=== PATIENT | female | born 1945 | race Caucasian/White ===

== ENCOUNTER 2018-08-03 14:39 | Inpatient (IN) | payer OTHER ==
[~2018-08-03] VITALS: Ht 170.2 cm; Wt 89.4 kg
--- NOTE | 2018-08-03 14:59 | NUR ---
PATIENT WHEELCHAIR ASSISTED TO BED 8.
[2018-08-03 15:00] VITALS: BP 162/63
--- NOTE | 2018-08-03 15:17 | NUR ---
PATIENT PRESENTS TO ED WITH THE CHIEF C/O RIGHT FOOT ABSCESS, PAIN. ACCORDING TO PT, WOUND PRESENTED SINCE A YEAR AGO. PT NOTED WITH DRAINING OPEN WOUND ON RIGHT FOOT. AMPUTED PART OF RIGHT GREAT TOE. WOUND SITE NOTED WITH BLANCHEABLE REDNESS AND SWOLLEN. PT HAS GOOD PULSATION ON RIGHT FEET. PT HAS NEUROPATHY. DENIES N/V,D AT THIS TIME. SKIN IS PINK/WARM/DRY; AAOX4. LUNGS CLEAR BL; HR EVEN AND REGULAR; PT DENIES ANY FEVER, CP, SOB, OR COUGH AT THIS TIME; PATIENT STATES PAIN OF 0/10 AT THIS TIME. VERICOSE VEINS NOTED ON BLE. PITTING EDEMA NOTED ON BLE. VSS; PATIENT POSITIONED FOR COMFORT; HOB ELEVATED; BEDRAILS UP X2; BED DOWN. ER MD MADE AWARE OF PT STATUS.
[2018-08-03] MEDS ORDERED: NACL 0.9% 1,000 ML IV SCH (15:25)
[2018-08-03] MEDS ORDERED: PIPERACILLIN/TAZOBACTAM 3.375 GM in DEXT 5% MINI-BAG PLUS 50 ML IV ONE (15:25)
[2018-08-03] MEDS ORDERED: traMADol 50 MG TAB PO ONE (15:45)
[2018-08-03 16:03] LABS: BASOPHILS % (AUTO) 0.2 % (0.0-2.0); EOSINOPHILS # (AUTO) 0.1 K/uL (0-0.4); EOSINOPHILS % (AUTO) 0.7 % (0.0-4.0); HEMATOCRIT 29.9 % (36-48); HEMOGLOBIN 9.6 g/dL (12.0-16.0); LYMPHOCYTES # (AUTO) 0.8 K/uL (2.5-16.5); LYMPHOCYTES % (AUTO) 6.1 % (20.5-51.1); MEAN CORPUSCULAR HEMOGLOBIN 31 pg (27-31); MEAN CORPUSCULAR HGB CONC 32 g/dL (33-37); MEAN CORPUSCULAR VOLUME 95.2 fL (80-94); MONOCYTES # (AUTO) 0.7 K/uL (0.8-1.0); MONOCYTES % (AUTO) 4.9 % (1.7-9.3); NEUTROPHILS # (AUTO) 11.6 K/uL (1.8-7.7); NEUTROPHILS % (AUTO) 88.1 % (42.2-75.2); PLATELET COUNT (AUTO) 475 K/uL (140-450); RED BLOOD CELL COUNT(AUTO) 3.14 MIL/uL (4.20-5.40); RED CELL DISTRIBUTION WIDTH 15.3 % (11.6-13.7); WHITE BLOOD COUNT (AUTO) 13.2 K/uL (4.8-10.8)
[2018-08-03] MEDS ORDERED: PIPERACILLIN/TAZOBACTAM 3.375 GM VIAL IV ONE (16:26)
[2018-08-03 16:31] LABS: ANION GAP 15.5 (8-16); CARBON DIOXIDE 26.9 mmol/L (21-32); CHLORIDE 97 mmol/L (98-107); CREATININE 1.7 mg/dL (0.6-1.3); GLUCOSE 98 mg/dL (74-106); POTASSIUM 3.4 mmol/L (3.5-5.1); SODIUM SERUM 136 mmol/L (136-145); UREA NITROGEN, BLOOD 27 mg/dL (7-18)
[2018-08-03 16:36] LABS: ALBUMIN 3.1 g/dL (3.4-5.0); ASPARTATE AMINOTRANSFERASE 52 U/L (15-37); TOTAL BILIRUBIN 0.4 mg/dL (0.0-1.0)
--- NOTE | 2018-08-03 16:45 | NUR ---
x-ray at the bedside.
[2018-08-03 16:50] LABS: PROTHROMBIN TIME 10.6 secs (10.8-13.4)
[2018-08-03 16:52] LABS: URIC ACID 6.8 mg/dL (2.6-7.2)
[2018-08-03 16:53] LABS: ACETONE, SERUM NEGATIVE (NEGATIVE)
[2018-08-03 17:25] LABS: APPEARANCE,URINE CLEAR (CLEAR); BILIRUBIN,URINE NEGATIVE (NEGATIVE); BLOOD, URINE NEGATIVE (NEGATIVE); COLOR,URINE YELLOW (YELLOW); LEUKOCYTE ESTERASE ,URINE NEGATIVE (NEGATIVE); NITRITE, URINE NEGATIVE (NEGATIVE); UGLUCOSE NEGATIVE (NEGATIVE)
--- NOTE | 2018-08-03 19:30 | NUR ---
ASSUMED CARE OF PT AT THIS TIME FROM HAILE JONES
--- NOTE | 2018-08-03 21:15 | NUR ---
PT RESTING AT THIS TIME. VSS. NO COMPLAINTS AT THIS TIME.
--- NOTE | 2018-08-03 22:14 | NUR ---
PT ARRIVED FROM ER IN [facility]. RECEIVED REPORT FROM STRUCTURAL METAL FABRICATOR APPRENTICE FOR CONTINUITY OF CARE. PT IS A/OX4, ON ROOM AIR. PT IS ABLE TO MAKE NEEDS KNOWN, ABLE TO FOLLOW COMMANDS. PT AMBULATES WITH CANE. PT HAS RIGHT FOOT ULCER OOZING PURULENT SECRETIONS, ALSO HAS BRUISES ON RIGHT FOREARM. PT HAS A 20G IV TO LEFT AC, ASYMPTOMATIC AND INTACT. DISCUSSED PLAN OF CARE WITH PT, PT VERBALIZED UNDERSTANDING. OBTAINED MRSA SWAB. VITAL SIGNS WITHIN NORMAL LIMITS. PT STABLE, DENIES PAIN, NO SIGNS OF DISTRESS NOTED AT THIS TIME. PT POSITIONED FOR COMFORT. BED IN LOWEST POSITION, BED ALARM ON. CALL LIGHT WITHIN REACH, WILL CONTINUE TO MONITOR.
[2018-08-03] MEDS ORDERED: DEXT 5% /NACL 0.9% 1,000 ML IV SCH (22:19)
[2018-08-03] MEDS ORDERED: DOCUSATE SODIUM 100 MG GELCAP PO PRN (22:20)
[2018-08-03] MEDS ORDERED: ACETAMINOPHEN 325 MG TAB PO PRN ×2 (22:20→23:05)
[2018-08-03] MEDS ORDERED: ONDANSETRON 4 MG/2 ML VIAL IM/IVP PRN (22:20)
[2018-08-03] MEDS ORDERED: HYDROcodone/APAP 7.5/325 MG 1 TAB PO PRN (22:20)
--- NOTE | 2018-08-03 22:39 | NUR ---
Patient will be admitted to care of DR BRAXTON. Admited to TELE. Will go to room 110-B. Belongings list completed. Report to HAILE WEBB.
[2018-08-03] MEDS ORDERED: CETI-24 PO (22:49)
[2018-08-03] MEDS ORDERED: BACL10TA4 PO (22:49)
[2018-08-03] MEDS ORDERED: FURO-572 PO (22:49)
[2018-08-03] MEDS ORDERED: LEVO0.155 PO (22:49)
[2018-08-03] MEDS ORDERED: OMEP20TC10 PO (22:49)
[2018-08-03] MEDS ORDERED: PRED5TAB7 PO (22:49)
[2018-08-03] MEDS ORDERED: CALC0.5S6 PO (22:49)
[2018-08-03] MEDS ORDERED: TOFA5TAB PO (22:49)
[2018-08-03] MEDS ORDERED: AMLO5TAB PO (22:49)
[2018-08-03] MEDS ORDERED: FEBU80TA PO (22:49)
[2018-08-03] MEDS ORDERED: POTA8TER12 PO (22:49)
[2018-08-03] MEDS ORDERED: ONDANSETRON 4 MG/2 ML VIAL IVP PRN (23:05)
[2018-08-03] MEDS ORDERED: HYDROcodone/APAP 5/325 MG 1 TAB TAB PO PRN ×2 (23:05)
[2018-08-03 23:14] LABS: CHOL/HDL RATIO 3.5 (1-4.5); FREE T4 (FREE THYROXINE) 1.54 ng/dL (0.76-1.46); PHOSPHORUS 2.5 mg/dL (2.5-4.9); THYROID STIMULATING HORMONE 0.04 uIU/mL (0.34-3.74)
[2018-08-03] MEDS ORDERED: cefTRIAXone 1,000 MG VIAL ONE (23:52)
[2018-08-04] VITALS: BP 160/71
--- NOTE | 2018-08-04 | NUR ---
VITAL SIGNS WITHIN NORMAL LIMITS. DENIES PAIN, NO SIGNS OF DISTRESS NOTED AT THIS TIME. PT POSITIONED FOR COMFORT. BED IN LOWEST POSITION, BED ALARM ON. CALL LIGHT WITHIN REACH, WILL CONTINUE TO MONITOR.
--- NOTE | 2018-08-04 01:15 | NUR ---
SPOKE TO DR BRANDT REGARDING PT MAGNESIUM LEVEL AT 1.0, DR BRANDT SAID "OK." ASKED HIM IF HE WANTED TO REPLETE IT OR LEAVE IT IS, HE SAID "THAT'S FINE THANKS."
--- NOTE | 2018-08-04 02:23 | NUR ---
GAVE PT SANDWICH BECAUSE PT WAS HUNGRY.
[2018-08-04] MEDS ORDERED: LEVOTHYROXINE 0.075 MG TAB PO SCH (06:30)
--- NOTE | 2018-08-04 07:37 | NUR ---
ENDORSED PT TO DAY SHIFT HAILE CASTRO FOR CONTINUITY OF CARE. PT IN STABLE CONDITION. Addendum: 08/04/18 at 0739 by Chantelle Simmons RN ENDORSED TO NHAN HOWE.
[2018-08-04 08:00] VITALS: BP 170/65
[2018-08-04 08:00] LABS: BASOPHILS % (AUTO) 0.3 % (0.0-2.0); EOSINOPHILS # (AUTO) 0.2 K/uL (0-0.4); EOSINOPHILS % (AUTO) 1.6 % (0.0-4.0); HEMATOCRIT 26.2 % (36-48); HEMOGLOBIN 8.5 g/dL (12.0-16.0); LYMPHOCYTES # (AUTO) 1.9 K/uL (2.5-16.5); LYMPHOCYTES % (AUTO) 18.5 % (20.5-51.1); MEAN CORPUSCULAR HEMOGLOBIN 31 pg (27-31); MEAN CORPUSCULAR HGB CONC 33 g/dL (33-37); MEAN CORPUSCULAR VOLUME 95.9 fL (80-94); MONOCYTES # (AUTO) 0.7 K/uL (0.8-1.0); MONOCYTES % (AUTO) 7.2 % (1.7-9.3); NEUTROPHILS # (AUTO) 7.4 K/uL (1.8-7.7); NEUTROPHILS % (AUTO) 72.4 % (42.2-75.2); PLATELET COUNT (AUTO) 415 K/uL (140-450); RED BLOOD CELL COUNT(AUTO) 2.73 MIL/uL (4.20-5.40); RED CELL DISTRIBUTION WIDTH 14.9 % (11.6-13.7); WHITE BLOOD COUNT (AUTO) 10.2 K/uL (4.8-10.8)
[2018-08-04] MEDS: LORATADINE 10 MG TAB PO SCH (08:42)
[2018-08-04] MEDS: PANTOPRAZOLE 40 MG TABEC PO SCH (08:42)
[2018-08-04] MEDS: amLODIPine 5 MG TAB PO SCH (08:44)
[2018-08-04] MEDS: predniSONE 5 MG TAB PO SCH (08:45)
[2018-08-04] MEDS: POTASSIUM CHLORIDE 8 MEQ TABER PO SCH (08:45)
--- NOTE | 2018-08-04 08:54 | NUR ---
PATIENT HAS BEEN SCREENED AND CATEGORIZED HIGH NUTRITION RISK. PATIENT WILL BE SEEN WITHIN 1-2 DAYS OF ADMISSION. 08/04/18-08/05/[address]
[2018-08-04] MEDS ORDERED: [UNRECOGNIZED DRUG - REMARK] PO SCH (09:00)
[2018-08-04] MEDS ORDERED: NON-FORMULARY ITEM (Omeprazole 40 MG) PO SCH (09:00)
--- NOTE | 2018-08-04 09:03 | NUR ---
ADMINISTERED PRESCRIBED MEDS. PATIENT TOLERATED WELL. WILL CONTINUE TO MONITOR.
[2018-08-04 09:22] LABS: ALBUMIN 2.6 g/dL (3.4-5.0); ANION GAP 11.1 (8-16); ASPARTATE AMINOTRANSFERASE 54 U/L (15-37); CARBON DIOXIDE 28.4 mmol/L (21-32); CHLORIDE 101 mmol/L (98-107); CREATININE 1.6 mg/dL (0.6-1.3); GLUCOSE 91 mg/dL (74-106); POTASSIUM 3.5 mmol/L (3.5-5.1); SODIUM SERUM 137 mmol/L (136-145); TOTAL BILIRUBIN 0.3 mg/dL (0.0-1.0); UREA NITROGEN, BLOOD 29 mg/dL (7-18)
--- NOTE | 2018-08-04 10:40 | NUR ---
PATIENT SPOKE WITH DR. PACHECO REGARDING HOME MEDICATIONS AND OR SCHEDULED FOR TOMORROW. PATIENT AND DOCTOR ARE ON THE SAME PAGE WITH MEDS.
--- NOTE | 2018-08-04 12:26 | NUR ---
PATIENT APPLYING MAKEUP. NO DISTRESS NOTED. WILL CONTINUE TO MONITOR.
[2018-08-04] MEDS: BACLOFEN 10 MG TAB PO SCH ×2 (12:48→18:06)
--- NOTE | 2018-08-04 12:48 | NUR ---
ADMINISTERED SCHEDULED MEDS. PATIENT EATING LUNCH. PATIENT TOLERATED WELL. WILL CONTINUE TO MONITOR.
--- NOTE | 2018-08-04 13:24 | NUR ---
SPOKE TO CHARGE NURSE AND PT. PT. IS AAX4. PER PT. SHE WAS SEEN AND TREATMENT WAS DONE BY INTERNAL RECRUITER THIS MORNING,AND PLAN FOR SURGERY TOMORROW.PT. WILL CONTINUE TO FOLLOW UP WITH PODIATRY SERVICE. NO NEED FOR WOUND CONSULT/RECOMMENDATIONS AT THIS TIME. CENTRAL SUPPLY WAS NOTIFIED WOUND VAC WAS ORDER PER DR. ALL OLEARY.
--- NOTE | 2018-08-04 13:55 | NUR ---
SON AT BEDSIDE. NO SIGNS OF RESPIRATORY DISTRESS, ON RA. WILL CONTINUE TO MONITOR.
--- NOTE | 2018-08-04 14:08 | NUR ---
08/04/18 RD INITIAL ASSESSMENT COMPLETED PLEASE REFER TO NUTRITION ASSESSMENT UNDER CARE ACTIVITY FOR ESTIMATED NUTRITIONAL NEEDS. 1. CONTINUE CARDIAC DIET TOLERATED 2. RECOMMEND JAYDEN BID TO AID IN WOUND HEALING 3. RD TO FOLLOW-UP 3-5 DAYS, MODERATE RISK KELSEA DESHPANDE, RD
[2018-08-04 16:00] VITALS: BP 181/84
--- NOTE | 2018-08-04 16:03 | NUR ---
PATIENT SPEAKING TO ON PHONE. NO DISTRESS NOTED, ON RA. WILL CONTINUE TO MONITOR.
[2018-08-04] MEDS: FUROSEMIDE 20 MG TAB PO SCH (18:06)
--- NOTE | 2018-08-04 18:08 | NUR ---
ADMINISTERED SCHEDULED MEDS. PATIENT TOLERATED WELL. WILL CONTINUE TO MONITOR.
--- NOTE | 2018-08-04 19:50 | NUR ---
HOUSE CALLS NURSE PRACTITIONER CALLED PRELIMINARY RESULT OF RIGHT FOOT WOUND CULTURE POSITIVE FOR MRSA. INFORMED CHARGE NURSE KENDRA.
--- NOTE | 2018-08-04 19:57 | NUR ---
GAVE REPORT TO WATER HAULER NURSE. PATIENT ENDORSED IN STABLE CONDITION.
--- NOTE | 2018-08-04 19:58 | NUR ---
RECD. RESTING IN BED, AWAKE, A/OX4, OBESE. RESPIRATION EVEN AND UNLABORED. IV OF NS AT TKO INFUSING, LEFT AC G20. RIGHT FOOT WOUND COVERED WITH DRESSING DRY AND INTACT. PLAN OF CARE FOR THE SHIFT DISCUSSED. VERBALIZED UNDERSTANDING. DENIES PAIN 0/10.
--- NOTE | 2018-08-04 20:15 | NUR ---
TRANSFER PATIENT TO ROOM 105B. CONTACT ISOLATION.
--- NOTE | 2018-08-04 21:00 | NUR ---
Patient's Plan of Care was discussed and reviewed with STOCK PREPARER: TALIA FIGUEROA
--- NOTE | 2018-08-04 21:05 | NUR ---
IV ACCESS ON THE LT AC INFILTRATED. A NEW IV SITE STARTED ON THE LT WRIST G#22. CLEAR AND PATENT
[2018-08-04] MEDS ORDERED: VANCOMYCIN PER PHARMACY MC ONE (21:25)
[2018-08-04] MEDS ORDERED: hydrALAZINE 20 MG/ML VIAL IVP PRN ×2 (21:25→23:35)
[2018-08-04 21:40] VITALS: BP 211/73
[2018-08-04] MEDS ORDERED: VANCOMYCIN PER PHARMACY MC SCH (21:45)
[2018-08-04] MEDS: hydrALAZINE 20 MG/ML VIAL IVP PRN (21:46)
--- NOTE | 2018-08-04 21:46 | NUR ---
PT BLOOD PRESSURE ELEVATED LATEST 211/73, HR-86 , PT SAID SHE IS NOT IN PAIN. PAGED DR. PANIAGUA AND DR ARGUETA STNA . CALL BACK WITH ORDER. HYDRALAZINE 10 MG IVP. GIVEN. WILL RECHECK BP AND CONTINUE TO MONITOR .
[2018-08-04] MEDS ORDERED: VANCOMYCIN 1GM/DEXT 5% PREMIX 200 ML IV ONE (22:00)
[2018-08-04] MEDS ORDERED: VANCOMYCIN 1,000 MG VIAL ONE (22:21)
--- NOTE | 2018-08-04 23:00 | NUR ---
WITH RESTLESSNESS BUT WHEN ASKED WHAT IS WRONG, JUST SHAKE HEAD, STATED I DON'T KNOW. FALLS ASLEEP AND SNORE F THEN BECAME RESTLESS AGAIN.
--- NOTE | 2018-08-04 23:15 | NUR ---
HARD TO CHECK BP, PATIENT RESTLESS. BP - 193/74, OR - 96, 02 SAT- 92% ON 02 AT 2L N/C. WILL PAGE DR. KENDALL DEE.
--- NOTE | 2018-08-04 23:28 | NUR ---
PT VERY RESTLESS, BP STILL ELEVATED 193/74, HR-96. PAGED AGAIN DR. ARGUETA. CALLED BACK AND MADE AWARE ABOUT PT CONDITION. WITH ORDERS,
[2018-08-04] MEDS ORDERED: METOPROLOL 50 MG TAB PO ONE (23:32)
[2018-08-04] MEDS: NACL 0.9% 1,000 ML IV SCH (23:35)
[2018-08-04] MEDS ORDERED: LORazepam 2 MG/ML VIAL IVP PRN (23:35)
[2018-08-05] VITALS: BP_SYST 166; BP_SYST 177; BP_DIAS 59; BP_DIAS 65
--- NOTE | 2018-08-05 | NUR ---
WITH ON AND OFF RESTLESSNESS, STILL UNABLE TO GIVE ORDERED ONE TIME DOSE OF LOPRESSOR, PATIENT SLEEPS THEN BECOMES RESTLESS. WILL CONTINUE TO MONITOR. CHARGE NURSE KENDRA COURTNEY.
--- NOTE | 2018-08-05 00:50 | NUR ---
PT STILL REMAINS RESTLESS, BP 177/59,HR-108. ATIVAN 1 MG IVP GIVEN ORDERED. WILL CONTINUE TO MONITOR.
--- NOTE | 2018-08-05 01:30 | NUR ---
SLEEPING, SNORES. OCCASIONALLY WITH RESTLESSNESS. BP TRENDING DOWN, 151/65, HR - 95%.
[2018-08-05 02:00] VITALS: BP 163/63
--- NOTE | 2018-08-05 02:00 | NUR ---
BP CHECKED - 163/63, HR -93. SLEEPING, OCCASIONALLY WITH RESTLESSNESS.
[2018-08-05] MEDS: NACL 0.9% 1,000 ML IV SCH ×2 (02:25→21:23)
--- NOTE | 2018-08-05 04:00 | NUR ---
STILL SLEEPING IN BED, HAD BM, CLEANSED AND REPOSITIONED IN BED FOR COMFORT.
--- NOTE | 2018-08-05 05:45 | NUR ---
BP CHECKED - 187/72, HR- 72. INFORMED DR. ARGUETA. TWO DOSES OF HYDRALAZINE GIVEN BUT PATIENT BP IS STILL IN THE HIGH SIDE. PATIENT LETHARGIC. INQUIRED IF CAN BE TRANSFERRED TO ICU. ORDERED CLONIDINE PATCH 0.2 MG. PATCH. AND JUST CONTINUE WITH HYDRALAZINE AND ORDER CT OF HEAD WITH CONTRAST.
[2018-08-05 06:11] LABS: T4 (THYROXINE) 7.7 ug/dL (4.5-12.0)
[2018-08-05] MEDS: hydrALAZINE 20 MG/ML VIAL IVP PRN ×2 (06:12→23:02)
--- NOTE | 2018-08-05 06:35 | NUR ---
TAKEN TO RADIOLOGY WITH TECH, FURNITURE ASSOCIATE FOR CT OF HEAD WITHOUT CONTRAST.
--- NOTE | 2018-08-05 07:00 | NUR ---
BACK TO BED FROM RADIOLOGY.
--- NOTE | 2018-08-05 07:10 | NUR ---
RECEIVED PT REPORT FROM SAILOR RN, AT BEDSIDE. PT IS DROWSY, HARD TO WAKE UP. NO S/S OF DISTRESS NOTED ON 2L NC. RESPIRATION EVEN AND UNLABORED. IV CATH NOTED TO LEFT WRIST 22G, RUNNING NS AT 50ML/HR. RIGHT FOOT WOUND COVERED WITH DRESSING DRY AND INTACT. FALL PRECAUTIONS IN PLACE. BED ALARM ON. WILL CONTINUE TO MONITOR. Addendum: 08/05/18 at 1545 by Ced Giordano RN RECEIVED PT REPORT FROM SAILOR NURSE TALIA
--- NOTE | 2018-08-05 07:12 | NUR ---
CHECKED PT'S VITAL SIGNS. WILL RECORD.
[2018-08-05] MEDS: PANTOPRAZOLE 40 MG TABEC PO SCH (07:30)
--- NOTE | 2018-08-05 07:30 | NUR ---
STILL WITH OCCASIONAL RESTLESSNESS. ENDORSED TO AM NURSE TO FOLLOW UP CT HEAD RESULT AND FOR CONTINUITY OF CARE.
[2018-08-05 08:00] VITALS: BP 140/76
[2018-08-05 08:06] LABS: BASOPHILS % (AUTO) 0.1 % (0.0-2.0); EOSINOPHILS % (AUTO) 0.3 % (0.0-4.0); HEMATOCRIT 30.7 % (36-48); HEMOGLOBIN 10.1 g/dL (12.0-16.0); LYMPHOCYTES # (AUTO) 0.6 K/uL (2.5-16.5); LYMPHOCYTES % (AUTO) 5.4 % (20.5-51.1); MEAN CORPUSCULAR HEMOGLOBIN 31 pg (27-31); MEAN CORPUSCULAR HGB CONC 33 g/dL (33-37); MEAN CORPUSCULAR VOLUME 94.8 fL (80-94); MONOCYTES # (AUTO) 0.7 K/uL (0.8-1.0); MONOCYTES % (AUTO) 6.2 % (1.7-9.3); NEUTROPHILS # (AUTO) 10.7 K/uL (1.8-7.7); PLATELET COUNT (AUTO) 469 K/uL (140-450); RED BLOOD CELL COUNT(AUTO) 3.23 MIL/uL (4.20-5.40); RED CELL DISTRIBUTION WIDTH 15.3 % (11.6-13.7); WHITE BLOOD COUNT (AUTO) 12.1 K/uL (4.8-10.8)
[2018-08-05] MEDS: amLODIPine 5 MG TAB PO SCH (09:00)
[2018-08-05] MEDS ORDERED: cloNIDine-TTS2 0.2 MG/24 HR 1 EA PATCH TD ONE (09:00)
[2018-08-05] MEDS: BACLOFEN 10 MG TAB PO SCH ×3 (09:00→17:00)
[2018-08-05] MEDS: METOPROLOL 50 MG TAB PO SCH ×3 (09:00→17:00)
[2018-08-05] MEDS: LORATADINE 10 MG TAB PO SCH (09:00)
[2018-08-05] MEDS: POTASSIUM CHLORIDE 8 MEQ TABER PO SCH (09:00)
[2018-08-05] MEDS: CALCITRIOL 0.25 MCG CAPLF PO SCH (09:00)
[2018-08-05] MEDS: metroNIDAZOLE 500 MG TAB PO SCH ×3 (09:00→17:00)
[2018-08-05] MEDS: FUROSEMIDE 20 MG TAB PO SCH ×2 (09:00→17:00)
[2018-08-05] MEDS: predniSONE 5 MG TAB PO SCH (09:00)
--- NOTE | 2018-08-05 09:45 | NUR ---
PT. IS DROWSY, UNABLE TO SWALLOW MEDICATIONS DUE AT 0900.
--- NOTE | 2018-08-05 10:25 | NUR ---
MADE DR PANIAGUA AWARE OF PT NOT HARD TO WAKE UP AND APPEAR RESTLESS SOMETIMES. DR PANIAGUA ORDERED ABG STAT AND CHEST X RAY STAT.
--- NOTE | 2018-08-05 11:05 | NUR ---
MADE DR PANIAGUA AWARE THAT AMMONIA LEVEL 101. DR PANIAGUA ORDERED NG TUBE. PT STARTED SCREAMING WHILE INSERTING NG TUBE. DR PANIAGUA SAID TO CANCEL NG TUBE INSERT, AND WILL ADMINISTER LACTULOSE VIA RECTAL.
[2018-08-05 11:06] LABS: ANION GAP 17.9 (8-16); CARBON DIOXIDE 22.6 mmol/L (21-32); CHLORIDE 100 mmol/L (98-107); CREATININE 1.2 mg/dL (0.6-1.3); GLUCOSE 112 mg/dL (74-106); POTASSIUM 3.5 mmol/L (3.5-5.1); SODIUM SERUM 137 mmol/L (136-145); UREA NITROGEN, BLOOD 21 mg/dL (7-18)
[2018-08-05 11:14] LABS: ALBUMIN 3.1 g/dL (3.4-5.0); ASPARTATE AMINOTRANSFERASE 77 U/L (15-37); TOTAL BILIRUBIN 0.3 mg/dL (0.0-1.0)
[2018-08-05] MEDS ORDERED: RIFAXIMIN 550 MG TAB PO SCH ×2 (11:30→21:00)
[2018-08-05] MEDS ORDERED: LACTULOSE 20 GM/30 ML UDC NG SCH (13:00)
[2018-08-05] MEDS: LACTULOSE 20 GM/30 ML UDC PR SCH ×2 (13:17→17:01)
--- NOTE | 2018-08-05 13:40 | NUR ---
PT'S CALLED BACK, VERBAL CONSENT GIVEN TO BONE SCAN, CHARGE NURSE SHI ALSO CONFIRMED WITH PT'S .
--- NOTE | 2018-08-05 13:50 | NUR ---
SINDY YEPEZ IS IN [place], CALLED RADIOLOGY AND THEY WILL NOTIFY SINDY YEPEZ TO COME TO [place] THIS AFTERNOON.
--- NOTE | 2018-08-05 14:35 | NUR ---
PT STILL DROWSY, TRIED TO ROUSE PT, PT OPENED EYES FOR A SEC AND WENT BACK TO SLEEP. HOWEVER, PT IS RESTLESS, MOVING HER LEGS AND ARMS OCCASIONALLY.
--- NOTE | 2018-08-05 14:46 | NUR ---
SPOKE TO ANTWON AT DR CHANG'S OFFICE TO CHECK THE UPDATE OF SURGICAL SCHEDULE, WILL CALL BACK TO CONTACT [facility]ST CHARGE NURSE.
--- NOTE | 2018-08-05 15:00 | NUR ---
AROUSED PT BY NAME, PT APPEARS TO BE RESTLESS WHEN WAKING UP. ASKED PT IF SHE HAS PAIN, PT SAID NO, ASKED PT IF SHE WANTS WATER, PT SAID NO, PT WENT BACK TO SLEEP AGAIN.
--- NOTE | 2018-08-05 15:02 | NUR ---
SPOKE WITH SINDY YEPEZ, SHE SAID SHE SPOKE WITH PT'S FRIEND WHO CAME TO VISIT AROUND 1230, AND PT'S FRIEND SAID PT DOES NOT HAVE A . SINDY YEPEZ WILL CONTACT [facility] AND MIGHT DO THE TEST TOMORROW.
--- NOTE | 2018-08-05 15:17 | NUR ---
SPOKE TO ANTWON AND CONFIRM THAT DR. GRANADOS WILL PERFORM PROCEDURE TOMORROW AND [facility] WOUND VAC MACHINE AND SUPPLIES BRING TO [facility] CHARGE NURSE AND ENDORSE TO HER TO INFORM CENTRAL SUPPLY DEPARTMENT FIRST DATE OF USAGE.
--- NOTE | 2018-08-05 15:41 | NUR ---
BODY AND FRAME MAN VISITED THE PT.
[2018-08-05 16:00] VITALS: BP 117/69
--- NOTE | 2018-08-05 16:42 | NUR ---
PT WAS CLEANED, ALL LINENS CHANGED, ASKED IF PT WANTS WATER, PT SAID YES, BUT PT COULD DRINK FROM THE STRAW. TRIED A LITTLE APPLE SAUCE, PT DID NOT SWALLOW, ORAL CARE AND SUCTION PERFORMED. Addendum: 08/05/18 at 1656 by Jackson Owens RN PT TOLERATED WELL TO THE ORAL CARE.
--- NOTE | 2018-08-05 18:40 | NUR ---
PT'S DAUGHTER WANDA CAME, SHE SAID AGNES IS PT'S BOYFRIEND FOR 17 YEARS, NOT SURE IF THEY .
--- NOTE | 2018-08-05 19:35 | NUR ---
ENDORSED PT TO COMMERCIAL SALES REPRESENTATIVE RN. PT IN STABLE CONDITION, SLEEPING ON HER LEFT SIDE. NO S/S OF ACUTE DISTRESS ON 2L O2 NC.
[2018-08-05 20:00] VITALS: BP 167/73
[2018-08-05] MEDS ORDERED: PANTOPRAZOLE 40 MG INJ VIAL IVP SCH (20:30)
[2018-08-05] MEDS: HYDRAGUARD CREAM TP SCH (21:13)
[2018-08-05] MEDS: metroNIDAZOLE 500 MG/NS PREMIX 100 ML IV SCH (21:13)
[2018-08-05] MEDS: FUROSEMIDE 20 MG/2 ML VIAL IVP SCH (21:14)
--- NOTE | 2018-08-05 21:15 | NUR ---
Seen pt asleep but started moaning and groaning moving a lot in bed. Asked pt what's wrong. Pt unable to verbalized her needs at this time. Pt continuously moaning. Pt doesn't want to open her eyes. Initial assessment done. Vital signs checked. MD=355/73. Medications given as ordered. Will rechecked BP. Pt stopped moaning and went back to sleep. Safety reinforced. Bed alarm on.
[2018-08-05 22:55] VITALS: BP 175/79
[2018-08-05] MEDS: VANCOMYCIN 1GM/DEXT 5% PREMIX 200 ML IV SCH (22:58)
[2018-08-06] VITALS: BP 174/70
[2018-08-06] MEDS ORDERED: LABETALOL 100 MG/20 ML VIAL ONE (01:31)
--- NOTE | 2018-08-06 02:55 | NUR ---
Seen pt moaning and groaning again restless in bed. Pt appears to be more awake, able to open her eyes during conversation and responds verbally now w/ simple commands. Pericare rendered. Pt repositioned for comfort. Will continue to monitor.
[2018-08-06] MEDS: metroNIDAZOLE 500 MG/NS PREMIX 100 ML IV SCH ×3 (04:12→21:24)
[2018-08-06 04:20] VITALS: BP 162/51
--- NOTE | 2018-08-06 04:20 | NUR ---
Seen pt asleep then started moaning. Encouraged pt not to move and try to relax while vital signs is being checked. Pt able to follow simple commands. Pt's YH=772/51. Will give PRN medication. Bed alarm on.
[2018-08-06] MEDS: LABETALOL 100 MG/20 ML VIAL IVP PRN ×2 (04:54→10:32)
--- NOTE | 2018-08-06 06:00 | NUR ---
SEEN PT SITTING UP IN THE BED. PT TALKING INCOHERENTLY, NOTHING MAKING ANY SENSE. PT IS RE-DIRECTABLE. SAFETY REINFORCED. WILL CONTINUE TO MONITOR.
--- NOTE | 2018-08-06 07:25 | NUR ---
RECEIVED REPORT FROM NIGHT RN. PT RESTING IN BED. AAOX1. NO S/S OF ACUTE DISTRESS. FLACC-0. IV SITE PATENT AND INTACT. ON O2 2L NC. CALL LIGHT WITHIN REACH. SAFETY MEASURE ENSURED. WILL CONTINUE TO MONITOR.
[2018-08-06 07:44] LABS: BASOPHILS % (AUTO) 0.2 % (0.0-2.0); EOSINOPHILS # (AUTO) 0.1 K/uL (0-0.4); EOSINOPHILS % (AUTO) 0.6 % (0.0-4.0); HEMATOCRIT 28.8 % (36-48); HEMOGLOBIN 9.5 g/dL (12.0-16.0); LYMPHOCYTES # (AUTO) 0.5 K/uL (2.5-16.5); LYMPHOCYTES % (AUTO) 3.9 % (20.5-51.1); MEAN CORPUSCULAR HEMOGLOBIN 31 pg (27-31); MEAN CORPUSCULAR HGB CONC 33 g/dL (33-37); MEAN CORPUSCULAR VOLUME 95.4 fL (80-94); MONOCYTES # (AUTO) 0.7 K/uL (0.8-1.0); MONOCYTES % (AUTO) 5.7 % (1.7-9.3); NEUTROPHILS # (AUTO) 11.3 K/uL (1.8-7.7); NEUTROPHILS % (AUTO) 89.6 % (42.2-75.2); PLATELET COUNT (AUTO) 467 K/uL (140-450); RED BLOOD CELL COUNT(AUTO) 3.02 MIL/uL (4.20-5.40); RED CELL DISTRIBUTION WIDTH 14.8 % (11.6-13.7); WHITE BLOOD COUNT (AUTO) 12.6 K/uL (4.8-10.8)
[2018-08-06 08:00] VITALS: BP 164/71
[2018-08-06 08:29] LABS: ALBUMIN 2.8 g/dL (3.4-5.0); ANION GAP 16.4 (8-16); ASPARTATE AMINOTRANSFERASE 65 U/L (15-37); CARBON DIOXIDE 26.7 mmol/L (21-32); CHLORIDE 102 mmol/L (98-107); CREATININE 1.1 mg/dL (0.6-1.3); GLUCOSE 100 mg/dL (74-106); POTASSIUM 3.1 mmol/L (3.5-5.1); SODIUM SERUM 142 mmol/L (136-145); TOTAL BILIRUBIN 0.4 mg/dL (0.0-1.0); UREA NITROGEN, BLOOD 13 mg/dL (7-18)
[2018-08-06] MEDS: LACTULOSE 20 GM/30 ML UDC PR SCH ×3 (08:33→17:00)
[2018-08-06] MEDS: FUROSEMIDE 20 MG/2 ML VIAL IVP SCH ×2 (08:34→20:13)
[2018-08-06] MEDS: hydrALAZINE 20 MG/ML VIAL IVP PRN (08:34)
[2018-08-06] MEDS: PANTOPRAZOLE 40 MG INJ VIAL IVP SCH (08:34)
[2018-08-06] MEDS: HYDRAGUARD CREAM TP SCH ×2 (08:38→20:25)
[2018-08-06] MEDS: predniSONE 5 MG TAB PO SCH (08:43)
[2018-08-06] MEDS: amLODIPine 5 MG TAB PO SCH (08:43)
[2018-08-06] MEDS: BACLOFEN 10 MG TAB PO SCH ×3 (08:43→17:00)
[2018-08-06] MEDS: LORATADINE 10 MG TAB PO SCH (08:43)
[2018-08-06] MEDS: METOPROLOL 50 MG TAB PO SCH ×3 (08:43→17:00)
[2018-08-06] MEDS: CALCITRIOL 0.25 MCG CAPLF PO SCH (08:44)
[2018-08-06] MEDS: POTASSIUM CHLORIDE 8 MEQ TABER PO SCH (08:44)
[2018-08-06] MEDS ORDERED: TOFACITINIB CITRATE 11 MG PO SCH (09:34)
[2018-08-06] MEDS: THERAHONEY GEL 42.5 GM TP SCH (10:17)
--- NOTE | 2018-08-06 12:00 | NUR ---
PATIENT RESTING IN BED. NO S/S OF ACUTE DISTRESS. PT DENIES PAIN. IV SITE PATENT AND INTACT. CALL LIGHT WITHIN REACH. SAFETY MEASURES ENSURED. WILL CONTINUE TO MONITOR.
[2018-08-06 12:05] VITALS: BP 168/70
[2018-08-06] MEDS ORDERED: POTASSIUM CHLORIDE 60 MEQ, LIDOCAINE MPF 1% - 5 mL VIAL 25 MG in NACL 0.9% 250 ML IV SCH (13:00)
[2018-08-06] MEDS: NACL 0.9% 1,000 ML IV SCH (15:35)
[2018-08-06 16:00] VITALS: BP 145/68
--- NOTE | 2018-08-06 16:05 | NUR ---
PT RESTING IN BED. AAOX4 WITH SOME DIFFICULTY FINDING WORDS. NO S/S OF ACUTE DISTRESS. PT DENIES PAIN. CALL LIGHT WITHIN REACH. SAFETY MEASURED. WILL CONTINUE TO MONITOR.
--- NOTE | 2018-08-06 19:15 | NUR ---
RECEIVED PATIENT AWAKE RESTING ON BED. PATIENT AA0X2, EXPLAINED PLAN OF CARE AND VERBALIZED UNDERSTANDING. REPOSITIONED PATIENT AND PLACE IN COMFORTABLE POSITION. RESPIRATION EVEN AND NON-LABORED.CALL LIGHT WITHIN REACH. EXPLAINED PATIENT TO USE CALL LIGHT FOR ASSISTANCE WILL CONTINUE TO MONITOR..
[2018-08-06 20:00] VITALS: BP 153/64
--- NOTE | 2018-08-06 21:00 | NUR ---
V/S TAKEN AND RECORDED. SCHEDULE MEDICATION. TOLERATED WELL. NO S/S OF DISTRESS NOTED. EXPLAINED TO PATIENT NOTHING BY MOUTH AFTER MIDNIGHT AND VERBALIZED UNDERSTANDING.ALL NEEDS ATTENDED. CALL LIGHT WITHIN REACH. WILL CONTINUE TO MONITOR.
[2018-08-06] MEDS: VANCOMYCIN 1GM/DEXT 5% PREMIX 200 ML IV SCH (22:19)
[2018-08-07] VITALS: BP 155/66
--- NOTE | 2018-08-07 | NUR ---
V/S TAKEN AND RECORDED. NO S/S OF DISTRESS NOTED. [address] CALL LIGHT WITHIN REACH. ALL NEEDS ATTENDED.
[2018-08-07 04:00] VITALS: BP 130/61
--- NOTE | 2018-08-07 04:00 | NUR ---
V/S TAKEN AND RECORDED. FIREARMS INSTRUCTOR CLEANED AND CHANGED THE PATIENT AND REPOSITIONED FOR COMFORT. CALL LIGHT WITHIN REACH. ALL NEEDS ATTENDED. NO S/S OF DISTRESS NOTED.
[2018-08-07] MEDS: metroNIDAZOLE 500 MG/NS PREMIX 100 ML IV SCH ×3 (05:27→21:10)
--- NOTE | 2018-08-07 07:40 | NUR ---
ENDORSEMENT GIVEN TO AM SHIFT COMPUTER SYSTEMS DESIGN ANALYST AT BEDSIDE FOR CONTINUITY OF CARE. PATIENT IN STABLE CONDITION.
--- NOTE | 2018-08-07 07:57 | NUR ---
RECEIVED REPORT FROM ONCOLOGY SOCIAL WORKER RN. PT A/O X3. VERBALIZES NEEDS. SKIN DRY AND WARM TO TOUCH. AFEBRILE. ON O2 AT 1 LTR/MIN SATURATING 95%. LUNGS CLEAR B/L. PERIPHERAL LINE ON LEFT FOREARM HAND 22G. INTACT LINE. NS RUNNING AT 100 ML/HR. ABDOMEN SOFT ROUND AND NON-TENDER. ACTIVE BOWEL SOUND. OPEN WOUND RIGHT FOOT NOTED COVERED WITH DRESSING MINIMAL DRAINAGE. REINFORCED DRESSING AT THIS TIME. REDNESS AND SWOLLEN LEG. KEPT LEG ELEVATED. PT DENIES PAIN AT THIS TIME. KEPT HOB ELEVATED. BED IN LOW POSITION LOCKED. WILL CONTINUE TO MONITOR.
[2018-08-07 08:00] VITALS: BP 179/81
[2018-08-07 08:08] LABS: BASOPHILS % (AUTO) 0.3 % (0.0-2.0); EOSINOPHILS # (AUTO) 0.1 K/uL (0-0.4); HEMATOCRIT 28.3 % (36-48); HEMOGLOBIN 9.2 g/dL (12.0-16.0); LYMPHOCYTES # (AUTO) 0.6 K/uL (2.5-16.5); LYMPHOCYTES % (AUTO) 6.9 % (20.5-51.1); MEAN CORPUSCULAR HEMOGLOBIN 31 pg (27-31); MEAN CORPUSCULAR HGB CONC 33 g/dL (33-37); MONOCYTES # (AUTO) 0.8 K/uL (0.8-1.0); MONOCYTES % (AUTO) 8.9 % (1.7-9.3); NEUTROPHILS # (AUTO) 7.1 K/uL (1.8-7.7); NEUTROPHILS % (AUTO) 82.9 % (42.2-75.2); PLATELET COUNT (AUTO) 424 K/uL (140-450); RED BLOOD CELL COUNT(AUTO) 2.95 MIL/uL (4.20-5.40); RED CELL DISTRIBUTION WIDTH 14.9 % (11.6-13.7); WHITE BLOOD COUNT (AUTO) 8.5 K/uL (4.8-10.8)
[2018-08-07] MEDS: FUROSEMIDE 20 MG/2 ML VIAL IVP SCH ×2 (08:56→21:11)
[2018-08-07] MEDS: PANTOPRAZOLE 40 MG INJ VIAL IVP SCH (08:57)
[2018-08-07] MEDS: POTASSIUM CHLORIDE 8 MEQ TABER PO SCH (08:58)
[2018-08-07] MEDS: LACTULOSE 20 GM/30 ML UDC PR SCH ×3 (09:00→16:07)
[2018-08-07] MEDS ORDERED: TOFACITINIB CITRATE 11 MG PO SCH (09:00)
[2018-08-07] MEDS: LORATADINE 10 MG TAB PO SCH (09:02)
[2018-08-07] MEDS: BACLOFEN 10 MG TAB PO SCH ×3 (09:03→16:08)
[2018-08-07] MEDS: amLODIPine 5 MG TAB PO SCH (09:04)
[2018-08-07] MEDS: METOPROLOL 50 MG TAB PO SCH ×3 (09:04→16:07)
[2018-08-07] MEDS: CALCITRIOL 0.25 MCG CAPLF PO SCH (09:05)
[2018-08-07] MEDS: predniSONE 5 MG TAB PO SCH (09:36)
[2018-08-07] MEDS: HYDRAGUARD CREAM TP SCH ×2 (09:40→20:36)
[2018-08-07 09:48] LABS: ALBUMIN 2.7 g/dL (3.4-5.0); ANION GAP 15.8 (8-16); ASPARTATE AMINOTRANSFERASE 49 U/L (15-37); CARBON DIOXIDE 25.6 mmol/L (21-32); CHLORIDE 102 mmol/L (98-107); CREATININE 1.2 mg/dL (0.6-1.3); GLUCOSE 88 mg/dL (74-106); POTASSIUM 3.4 mmol/L (3.5-5.1); SODIUM SERUM 140 mmol/L (136-145); TOTAL BILIRUBIN 0.4 mg/dL (0.0-1.0); UREA NITROGEN, BLOOD 16 mg/dL (7-18)
--- NOTE | 2018-08-07 10:50 | NUR ---
PT SEEMS CONFUSED SOMETIMES. PT EVALUATED BY . EXPLAINED PT CONDITION AND FURTHER PLAN OF TREATMENT. HELD NM BONE SCAN FOR NOW. PAGED DR. CHANG TO FOLLOW UP FOR WOUND DEBRIDEMENT STATUS. RECEIVED CALL BACK FROM HIS RESIDENT. PER RESIDENT PT DOES NOT NEED TO BE ON NPO STATUS. SHE CAN EAT. PT IS ABLE TO TAKE PO MEDS W/O COMPLICATION. DR. PANIAGUA MADE AWARE. OKAY TO GIVE PO FOOD IF PROJECT MGR ALLOW PER DR. PANIAGUA. WILL FOLLOW THE ORDER.
[2018-08-07] MEDS ORDERED: POTASSIUM CHLORIDE 10 MEQ TABER PO SCH (10:55)
[2018-08-07] MEDS: THERAHONEY GEL 42.5 GM TP SCH (11:57)
[2018-08-07] MEDS: NACL 0.9% 1,000 ML IV SCH (11:58)
[2018-08-07 12:00] VITALS: BP 150/68
--- NOTE | 2018-08-07 13:29 | NUR ---
KEPT PT CLEAN AND DRY. ASSISTED NEEDED. NS RUNNING AT 50 ML/HR. INTACT IV LINE. V/S STABLE. DRESSING SITE INTACT. NO DRAINAGE NOTED. WILL CONTINUE TO MONITOR.
--- NOTE | 2018-08-07 15:24 | NUR ---
DR. OLEARY AT BEDSIDE FOR WOUND DEBRIDEMENT.
[2018-08-07 16:00] VITALS: BP 112/58
--- NOTE | 2018-08-07 16:27 | NUR ---
PT RESTING IN BED. A/O X4. VERBALIZES NEEDS. WOUND DEBRIDEMENT ON PROCESS. NO C/O PAIN. ADMINISTERED SCHEDULED MEDS. TOLERATING WELL. BP WNL.
--- NOTE | 2018-08-07 16:53 | NUR ---
Wound vac on no drainage noted at this time. Wound site clean and dry. Pt denies pain at tis time. Will continue to monitor.
--- NOTE | 2018-08-07 17:50 | NUR ---
PT C/O DIZZINESS. CHECKED VS WAS BP 131/68, P 68 SPO2 96% RR 22. BS CHECKED WAS 106. PT EATING DINNER. CONTINUE TO MONITOR.
--- NOTE | 2018-08-07 19:20 | NUR ---
REPORT GIVEN TO GRINDER MACHINE KNIFE SETTER RN FOR CONTINUITY OF CARE. PT STABLE.
--- NOTE | 2018-08-07 19:25 | NUR ---
RECEIVED PATIENT ASLEEP ON BED IN HIGH FOWLERS POSITION. PATIENT HAS A WOUND VAC ON HER RIGHT FOOT. EXPLAINED TO PATIENT PLAN OF CARE. FALL PRECAUTION APPLIED. CALL LIGHT WITHIN REACH.
[2018-08-07 20:00] VITALS: BP 155/66
--- NOTE | 2018-08-07 20:00 | NUR ---
V/S TAKEN AND RECORDED. SCHEDULE MEDICATION GIVEN. NO S/S OF DISTRESS NOTED AT THIS TIME. FALL PRECAUTION APPLIED. CALL LIGHT WITHIN REACH. WILL CONTINUE TO MONITOR.
[2018-08-07] MEDS ORDERED: cefTRIAXone 1,000 MG VIAL ONE (20:09)
[2018-08-07] MEDS: VANCOMYCIN 1GM/DEXT 5% PREMIX 200 ML IV SCH (22:53)
[2018-08-08] VITALS: BP 137/67
--- NOTE | 2018-08-08 | NUR ---
SEEN PATIENT ASLEEP. V/S TAKEN AND RECORDED. NETWORK OPERATIONS MANAGER CHANGED AND CLEANED, REPOSITIONED .CALL LIGHT WITHIN REACH. ALL NEEDS ATTENDED. NO S/S OF DISTRESS NOTED.
--- NOTE | 2018-08-08 | NUR ---
SEEN PATIENT ASLEEP. ALL NEEDS ATTENDED.
--- NOTE | 2018-08-08 02:00 | NUR ---
CALLED RADIOLOGY DEPARTMENT ABOUT BONE SCAN NEED TO BE DONE PER DR. DALTON. . THEY WILL CALL FLIGHT CONTROL SPECIALIST TECH PER RADIOLOGY DEPARTMENT FOR SCHEDULING. WILL FOLLOW-UP AND RELAY TO AM RN.
[2018-08-08 04:00] VITALS: BP 118/79
--- NOTE | 2018-08-08 04:00 | NUR ---
V/S TAKEN AND RECORDED. AM CARE DONE. REPOSITIONED AND PLACED IN COMFORTABLE POSITION.NO S/S OF DISTRESS NOTED. WILL CONTINUE TO MONITOR.
[2018-08-08] MEDS: metroNIDAZOLE 500 MG/NS PREMIX 100 ML IV SCH ×3 (04:45→20:24)
--- NOTE | 2018-08-08 07:15 | NUR ---
GAVE REPORT TO AM SHIFT RN AT BEDSIDE FOR CONTINUITY OF CARE. PATIENT IN STABLE CONDITION.
--- NOTE | 2018-08-08 07:16 | NUR ---
RECEIVED REPORT FROM PIT HAND NURSE. PT SLEEPING IN STABLE CONDITION. RESPIRATIONS EVEN AND UNLABORED. IV INTACT AND PATENT. SAFETY MEASURES IN PLACE. BED IN LOW POSITION. WILL CONTINUE TO MONITOR.
[2018-08-08] MEDS: NACL 0.9% 1,000 ML IV SCH ×2 (07:35→18:38)
--- NOTE | 2018-08-08 07:45 | NUR ---
PT BEGAN TO WAKE AND PULLED OUT WOUND VAC TUBING. PT WAS TRYING TO MOVE OUT OF BED WITH BACK TO FLOOR. NURSE HOLDING PT UP IN BED. PT WAS THEN TURNED TO LAY DOWN, PT CONTINUED TO TRY TO REMOVE RIGHT FOOT BANDAGE. PT THEN WENT BACK TO SLEEP. WILL CONTINUE TO MONITOR.
[2018-08-08 08:00] VITALS: BP 163/82
[2018-08-08] MEDS: LACTULOSE 20 GM/30 ML UDC PR SCH ×3 (09:00→17:00)
[2018-08-08] MEDS: POTASSIUM CHLORIDE 8 MEQ TABER PO SCH (09:56)
[2018-08-08] MEDS: ULORIC 80 MG PO SCH (09:57)
[2018-08-08] MEDS: LORATADINE 10 MG TAB PO SCH (09:57)
[2018-08-08] MEDS: CALCITRIOL 0.25 MCG CAPLF PO SCH (09:57)
[2018-08-08] MEDS: amLODIPine 5 MG TAB PO SCH (09:58)
[2018-08-08] MEDS: FUROSEMIDE 20 MG/2 ML VIAL IVP SCH ×2 (09:58→20:24)
[2018-08-08] MEDS: METOPROLOL 50 MG TAB PO SCH ×3 (09:58→17:12)
[2018-08-08] MEDS: PANTOPRAZOLE 40 MG INJ VIAL IVP SCH (09:58)
[2018-08-08] MEDS: XELJANZ 11 MG PO SCH (09:59)
[2018-08-08] MEDS: HYDRAGUARD CREAM TP SCH (10:06)
[2018-08-08] MEDS: THERAHONEY GEL 42.5 GM TP SCH (10:07)
[2018-08-08] MEDS: predniSONE 5 MG TAB PO SCH (10:12)
--- NOTE | 2018-08-08 11:10 | NUR ---
WOUND CARE EVALUATION NOTE: REASON FOR EVALUATION: PER CHARGE NURSE'S REPORT THAT PT. REMOVE WOUND VAC DRESSING AND PT HAS INTERMITTENT RESTLESS BEHAVIOR. PAGED DR. ALEX OLEARY, DPM [phone], NO RETURN CALL , INFORM PRIMARY RN TO CONTINUE FOLLOW UP DMP AND RECOMMENDATION FOR THERAHONEY GEL DAILY DRESSING CHANGE. INTEGUMENTARY: -MULTIPLE ECCHYMOSIS TO RIGHT AND LEFT UPPER ARMS WITH LARGEST SIZE 3X2 CM CLOSE TO RIGHT ELBOW AREA WITH SKIN INTACT -INCONTINENT ASSOCIATE DERMATITIS (IAD) TO: B/L GROINS EXTENDED TO PERINEUM AND EFFIE ANAL -RIGHT PLANTAR TOWARD RIGHT HALLUX SURGICAL WOUND S/P DEBRIDEMENT 2X2X1.5 CM WOUND BED IS RED , SMALL AMOUNT SEROUS DRAINAGE, NO ODOR, EFFIE WOUND SKIN INTACT RECOMMENDATIONS: -KEEP SKIN DRY AND CLEAN AT ALL TIMES, PLEASE CHECK Q2H AND PRN FOR INCONTINENCY OF BOWEL AND BLADDER. -CLEANSE RIGHT PLANTAR SURGICAL WOUND WITH NS. PAT DRY, APPLY THERAHONEY GEL AND COVER WITH DRY DRESSING QD AND PRN IF SOILING -APPLY Z-GUARD TO: B/L GROINS EXTENDED TO PERINEUM AND PERIANAL BID AND PRN IF SOILING -OFFLOAD BILATERAL HEELS BY PLACING PILLOWS UNDER CALVES UNLESS OTHERWISE CONTRAINDICATED -PRESSURE REDISTRIBUTION SURFACE THERAPY -TURN AND REPOSITION Q2H, OFFLOAD SACRALCOCCYX BY TURNING RIGHT AND LEFT -CONTINUE TO FOLLOW RD RECOMMENDATIONS ALL ABOVE RECOMMENDATIONS DISCUSSED WITH PRIMARY RN WILL FOLLOW UP PT Q7-10 DAYS. PLEASE CONTACT WOUND CARE NURSE FOR ANY QUESTION AND CHANGE OF WOUND CONDITION.
[2018-08-08 11:12] LABS: ANION GAP 11.8 (8-16); CARBON DIOXIDE 28.3 mmol/L (21-32); CHLORIDE 106 mmol/L (98-107); CREATININE 1.2 mg/dL (0.6-1.3); GLUCOSE 102 mg/dL (74-106); POTASSIUM 4.1 mmol/L (3.5-5.1); SODIUM SERUM 142 mmol/L (136-145); UREA NITROGEN, BLOOD 22 mg/dL (7-18)
[2018-08-08 12:00] VITALS: BP 182/80
--- NOTE | 2018-08-08 12:00 | NUR ---
PT DISORIENTED. DR. PACHECO ORDERED HEAD CT. AMMONIA LEVEL: 25
[2018-08-08] MEDS: BACLOFEN 10 MG TAB PO SCH ×2 (13:00→17:00)
[2018-08-08] MEDS: LABETALOL 100 MG/20 ML VIAL IVP PRN ×2 (13:04→19:46)
--- NOTE | 2018-08-08 13:25 | NUR ---
PT OUT FOR HEAD CT.
--- NOTE | 2018-08-08 14:30 | NUR ---
PT ABLE TO ANSWER QUESTIONS AOX3. WILL CONTINUE TO MONITOR.
[2018-08-08] MEDS: Z-GUARD PASTE TP SCH (14:44)
--- NOTE | 2018-08-08 15:30 | NUR ---
PT GIVEN 4 CUPS OF WATER. PT STATED SHE HAS DRY MOUTH AND NEEDS A LOT OF WATER. WILL CONTINUE TO MONITOR.
--- NOTE | 2018-08-08 15:50 | NUR ---
CALLED PT'S PER PT REQUEST. PT WAS ABLE TO SPEAK TO SPOUSE. WILL CONTINUE TO MONITOR.
[2018-08-08 16:00] VITALS: BP 174/67
--- NOTE | 2018-08-08 17:41 | NUR ---
* ST NOTE * Pt seen at bedside w/nsg present. Pt alert but moderately cooperative, reporting no c/o pain at this time. Bedside dysphagia and oral mechanism exams completed. See evaluation report for further details. Pt tolerating 4/4 alternating PO trials of regular solid saltine crackers as well as 8/8 successive sips of thin liquid apple juice and water both via a straw, all w/o s/s of aspiration or choking. Pt and nsg education completed re: aspiration precautions and safe swallow compensatory strategies pt and caregivers/nsg could utilize to aid pt w/swallow function, w/pt indifferent but nsg verbalizing understanding and agreement w/clinician's recommendations. Because pt presenting with residue in oral cavity after PO intake of regular solids, and because of pt's AMS/confusion/bxs, it is recommended pt's PO diet consistency be modified to mechanical soft textures w/thin liquids for all meals, w/aspiration precautions in place. No further ST follow up recommended at this time. Pt and caregiver/Nsg education completed re: results of evaluation; benefits of abiding by aspiration precautions and recommended PO diet consistency; and prognosis for improvement; with pt and caregiver/nsg verbalizing understanding and agreement w/clinician's recommendations. Recommend: - PO DIET CONSISTENCY OF MECHANICAL SOFT TEXTURES W/THIN LIQUIDS for all meals - WHOLE PILL PO MEDICATION ADMINISTRATION W/THIN LIQUIDS OR MIXED W/VANILLA PUDDING - Maintain ASPIRATION PRECAUTIONS DURING PT'S PO INTAKE 2/2 to pt's AMS/Bxs - Pt requires assistance w/feeding - Feeder to SIT PT UP AT 80-90 DEGREE ANGLE DURING PO INTAKE, FEED PT SLOWLY, ALTERNATING BTWN SOLIDS & LIQUIDS, & UTILIZING SMALL BITES/SIPS No further ST follow up recommended at this time. G8996 G8997 CI G8998 CI NOMS Level 2 Time In/Out 16:45 - 17:15
--- NOTE | 2018-08-08 19:25 | NUR ---
RECEIVED REPORT FROM DAY SHIFT NURSE, GABBY, AT PT BEDSIDE. PT IS AT BEDSIDE. PT IS AAOX3. PT IS ON RA WITH RESPIRATIONS EVEN AND UNLABORED. IV ACCESS L FA 22G WITH IVF RUNNING PER MD ORDERS. IV IS PATENT AND INTACT. PT HAS R FOOT DM ULCER THAT IS COVERED WITH DRY AND INTACT DRESSING. PT HAS NO C/O PAIN AT THIS TIME. BED IS LOCKED, LOW POSITION WITH SIDE RAILS UP X2. CALL LIGHT IS WITHIN REACH. BOARD UPDATED. WILL CONTINUE TO MONITOR.
--- NOTE | 2018-08-08 19:25 | NUR ---
GAVE REPORT TO HORTICULTURAL TECHNICAL OFFICER NURSE FOR CONTINUITY OF CARE. PT IN STABLE CONDITION.
[2018-08-08 20:00] VITALS: BP 154/64
--- NOTE | 2018-08-08 20:00 | NUR ---
PT HAD BM. PT CLEANED CHANGED AND TURNED. PT TOLERATED WELL. NO SIGNS OR SYMPTOMS OF DISTRESS. WILL CONTINUE TO MONITOR.
--- NOTE | 2018-08-08 20:30 | NUR ---
ADMINISTERED SCHEDULED MEDICATION. PT TOLERATED WELL. PT IS RESTING IN BED COMFORTABLY WATCHING TV. NO SIGNS OR SYMPTOMS OF DISTRESS. WILL CONTINUE TO MONITOR.
--- NOTE | 2018-08-08 20:30 | NUR ---
1515 PAGED PEDIATRY FOR RIGHT FOOT DM INFECTION.
--- NOTE | 2018-08-08 20:32 | NUR ---
PT GIVEN 4 CUPS OF WATER. PT STATED SHE HAS DRY MOUTH AND NEEDS A LOT OF WATER. WILL CONTINUE TO MONITOR. Addendum: 08/08/18 at 2032 by Brynn Yañez RN MORNING NOTE
--- NOTE | 2018-08-08 20:54 | NUR ---
PT DAUGHTER CALLED CONNECTED DAUGHTER TO PT PHONE. PT LAYING IN BED TALKING ON PHONE. NO SIGNS OR SYMPTOMS OF DISTRESS. WILL CONTINUE TO MONITOR.
[2018-08-08] MEDS: VANCOMYCIN 1GM/DEXT 5% PREMIX 200 ML IV SCH (21:00)
--- NOTE | 2018-08-08 21:00 | NUR ---
ADMINISTERED SCHEDULED ANTIBIOTIC. PT SPEAKING ON PHONE WITH DAUGHTER. NO SIGNS OR SYMPTOMS OF DISTRESS.
--- NOTE | 2018-08-08 22:52 | NUR ---
PT RESTING IN BED ON PLAYING ON TABLET. NO SIGNS OR SYMPTOMS OF DISTRESS. WILL CONTINUE TO MONITOR.
[2018-08-08] MEDS: hydrALAZINE 20 MG/ML VIAL IVP PRN (23:40)
--- NOTE | 2018-08-08 23:41 | NUR ---
ADMINISTERED HYDRALAZINE FOR BP 177/81. PT TOLERATED WELL. NO SIGNS OR SYMPTOMS OF DISTRESS. WILL CONTINUE TO MONITOR.
[2018-08-09] VITALS (7 sets, daily range): BP systolic 127–179; BP diastolic 60–81
--- NOTE | 2018-08-09 00:40 | NUR ---
BP REASSESSED, 134/53. PT HAS NO SIGNS OR SYMPTOMS OF DISTRESS. WILL CONTINUE TO MONITOR.
[2018-08-09] MEDS: Z-GUARD PASTE TP SCH ×3 (00:47→23:59)
--- NOTE | 2018-08-09 02:00 | NUR ---
PT CLEANED, CHANGED AND TURNED. PT TOLERATED WELL. NO SIGNS OR SYMPTOMS OF DISTRESS. WILL CONTINUE TO MONITOR.
--- NOTE | 2018-08-09 03:50 | NUR ---
ASSISTED PT TO CALL .
[2018-08-09] MEDS: metroNIDAZOLE 500 MG/NS PREMIX 100 ML IV SCH ×3 (04:09→21:33)
[2018-08-09] MEDS: hydrALAZINE 20 MG/ML VIAL IVP PRN (04:09)
[2018-08-09] MEDS: NACL 0.9% 1,000 ML IV SCH (04:11)
--- NOTE | 2018-08-09 04:11 | NUR ---
ADMINISTERED SCHEDULED ANTIBIOTIC. HYDRALAZINE GIVEN FOR BP 179/76. NEW BAG OF IVF AND TUBING STARTED. PT RESTING IN BED WATCHING TV. NO SIGNS OR SYMPTOMS OF DISTRESS. WILL CONTINUE TO MONITOR.
[2018-08-09] MEDS: LABETALOL 100 MG/20 ML VIAL IVP PRN (05:40)
--- NOTE | 2018-08-09 05:42 | NUR ---
BP REASSESSED 173/74. LABETALOL GIVEN. PT TOLERATED WELL AND IS WATCHING TV IN BED. NO SIGNS OR SYMPTOMS OF DISTRESS. WILL CONTINUE TO MONITOR.
--- NOTE | 2018-08-09 06:40 | NUR ---
BP REASSESSED, 167/77. PT HAS NO SIGNS OR SYMPTOMS OF DISTRESS. WILL CONTINUE TO MONITOR.
--- NOTE | 2018-08-09 07:15 | NUR ---
ENDORSED PT TO DAY SHIFT NURSE FOR CONTINUITY OF CARE. PT IN STABLE CONDITION.
--- NOTE | 2018-08-09 07:30 | NUR ---
RECEIVED PT FROM PM NURSE, PT AWAKE, ALERT. RA, NO S/S OF RESPIRATORY DISTRESS NOTED. PT HAS IV RUNNING NS AT 50 MLS/HR, SITE INTACT AND PATENT. PT SKIN NON INTACT ( SEE WOUND ASSESSMENT). PT DENIES PAIN OR DISCOMFORT AT THIS MOMENT. INTRODUCED MYSELF, CALL LIGHT IN REACH, HOB ELEVATED 30 DEGREE WITH LOW BED POSITION.WILL CONTINUE TO MONITOR.
[2018-08-09 07:53] LABS: BASOPHILS % (AUTO) 0.4 % (0.0-2.0); EOSINOPHILS # (AUTO) 0.2 K/uL (0-0.4); EOSINOPHILS % (AUTO) 1.8 % (0.0-4.0); HEMATOCRIT 31.6 % (36-48); HEMOGLOBIN 10.3 g/dL (12.0-16.0); LYMPHOCYTES % (AUTO) 9.2 % (20.5-51.1); MEAN CORPUSCULAR HEMOGLOBIN 31 pg (27-31); MEAN CORPUSCULAR HGB CONC 33 g/dL (33-37); MONOCYTES # (AUTO) 0.9 K/uL (0.8-1.0); MONOCYTES % (AUTO) 8.4 % (1.7-9.3); NEUTROPHILS # (AUTO) 8.5 K/uL (1.8-7.7); NEUTROPHILS % (AUTO) 80.2 % (42.2-75.2); PLATELET COUNT (AUTO) 505 K/uL (140-450); RED BLOOD CELL COUNT(AUTO) 3.29 MIL/uL (4.20-5.40); RED CELL DISTRIBUTION WIDTH 15.2 % (11.6-13.7); WHITE BLOOD COUNT (AUTO) 10.6 K/uL (4.8-10.8)
[2018-08-09 08:11] LABS: MAGNESIUM 1.1 mg/dL (1.8-2.4); PHOSPHORUS 2.5 mg/dL (2.5-4.9)
[2018-08-09] MEDS: LACTULOSE 20 GM/30 ML UDC PR SCH ×3 (09:00→16:38)
--- NOTE | 2018-08-09 09:22 | NUR ---
PT REFUSED LACTULOSE AFTER I EXPLAINED THE RISKS AND BENEFITS OF THIS MEDICATION, PT STATED SHE HAD DIARRHEA AT HOME. HOLD THIS MEDICATION AND WILL NOTIFY .
[2018-08-09] MEDS: PANTOPRAZOLE 40 MG INJ VIAL IVP SCH (09:24)
[2018-08-09] MEDS: LORATADINE 10 MG TAB PO SCH (09:25)
[2018-08-09] MEDS: CALCITRIOL 0.25 MCG CAPLF PO SCH (09:25)
[2018-08-09] MEDS: amLODIPine 5 MG TAB PO SCH (09:25)
[2018-08-09] MEDS: POTASSIUM CHLORIDE 8 MEQ TABER PO SCH (09:26)
[2018-08-09] MEDS: ULORIC 80 MG PO SCH (09:30)
[2018-08-09] MEDS: FUROSEMIDE 20 MG/2 ML VIAL IVP SCH ×2 (09:31→21:36)
[2018-08-09] MEDS: METOPROLOL 50 MG TAB PO SCH ×4 (09:37→16:32)
[2018-08-09] MEDS: XELJANZ 11 MG PO SCH (09:49)
[2018-08-09] MEDS: predniSONE 5 MG TAB PO SCH (10:51)
[2018-08-09] MEDS: BACLOFEN 10 MG TAB PO SCH ×3 (10:52→16:31)
[2018-08-09 11:27] LABS: ANION GAP 18.5 (8-16); CARBON DIOXIDE 23.8 mmol/L (21-32); CHLORIDE 100 mmol/L (98-107); CREATININE 1.2 mg/dL (0.6-1.3); GLUCOSE 85 mg/dL (74-106); POTASSIUM 3.3 mmol/L (3.5-5.1); SODIUM SERUM 139 mmol/L (136-145); UREA NITROGEN, BLOOD 17 mg/dL (7-18)
[2018-08-09] MEDS ORDERED: POTASSIUM CHLORIDE 10 MEQ TABER PO SCH (12:00)
[2018-08-09] MEDS ORDERED: MAG SULF 2000 MG/WATER PREMIX 100 ML IV SCH (13:00)
--- NOTE | 2018-08-09 13:00 | NUR ---
NOTIFIED DR. PANIAGUA, HOLD METOPROLOL DUE TO PT'S HR 56. AND PT REFUSED LACTULOSE
[2018-08-09] MEDS ORDERED: NEOMYCIN/POLYMYXIN/BACITRACIN 0.9 GM/1 PKT TP SCH (13:30)
--- NOTE | 2018-08-09 15:05 | NUR ---
08/09/18 RD FOLLOW UP COMPLETED. PLEASE REFER TO NUTRITION PROGRESS NOTE UNDER CARE ACTIVITY FOR ESTIMATED NUTRITION NEEDS. RD RECOMMENDATIONS: 1. CONTINUE CARDIAC DIET TOLERATED 2. RD TO FOLLOW-UP 3-5 DAYS, MODERATE RISK DRU BARRIGA MBA, RD
--- NOTE | 2018-08-09 17:00 | NUR ---
DUE MEDS GIVEN, PT TOLERATED WELL. PT STILL REFUSED LACTULOSE.
--- NOTE | 2018-08-09 18:10 | NUR ---
PT LEFT FOR BONE SCAN PER TECH BY WHEEL CHAIR.
--- NOTE | 2018-08-09 19:15 | NUR ---
RECEIVED BEDSIDE REPORT FROM NEL BE. PT JUST COMING BACK FROM BONE SCAN. PT IS A&OX3. RESPIRATIONS ARE EQUAL AND UNLABORED. HAS IV L FA 20G. WILL HAVE ANOTHER CT SCAN IN 3HRS. PATIENT IS INCONTINENT. PATIENT HAD A DEBRIDEMENT ON 08/08. DRESSING IS CLEAN DRY AND INTACT. PT SEEMS A BIT DROWSY. PER RN SHE WITH HELD STOOL SOFTENERS VANCO TROUGH TODAY AT 2100. PLAN OF CARE DISCUSSED. SAFETY MEASURES ARE IN PLACE. WILL CONTINUE TO MONITOR
--- NOTE | 2018-08-09 21:36 | NUR ---
VITAL SIGNS ARE WITHIN NORMAL LIMITS. DUE MEDICATIONS WERE GIVEN. PT TOLERATED WELL. FAMILY IS AT BEDSIDE. SAFETY MEASURES ARE IN PLACE.
--- NOTE | 2018-08-09 23:15 | NUR ---
PATIENT WENT FOR CT SCAN. NURSE REPORTS WAS NOT ABLE TO COMPLETE TEST. PT GOT AGITATED AND STARTED KICKING AND HITTING HER LEG. YELLING TO THE NURSES. PER NURSE SHE ALMOST CALLED [facility]. PT IS BACK IN ROOM. RESTING COMFORTABLY IN BED. VITAL SIGNS ARE STABLE. PT SLEEPING. ALL SAFETY MEASURES ARE IN PLACE. WILL CONTINUE TO MONITOR.
[2018-08-09] MEDS: VANCOMYCIN 1GM/DEXT 5% PREMIX 200 ML IV SCH (23:56)
[2018-08-10] VITALS: BP 164/66
--- NOTE | 2018-08-10 02:22 | NUR ---
SPOKE WITH DR. BRANDT REGARDING RESULTS OF BONE SCAN THERE ARE NO CHANGE IN ORDERS. WILL CONTINUE TO MONITOR.
--- NOTE | 2018-08-10 04:00 | NUR ---
VITAL SIGNS ARE STABLE. PT DENIES ANY SOB OR PAIN. RESPIRATIONS ARE EQUAL AND UNLABORED. CALL LIGHT WITHIN REACH.
[2018-08-10 04:06] VITALS: BP 166/73
[2018-08-10] MEDS: metroNIDAZOLE 500 MG/NS PREMIX 100 ML IV SCH ×3 (04:19→21:00)
--- NOTE | 2018-08-10 07:20 | NUR ---
ENDORSED PATIENT TO DAY SHIFT RN. PT IN STABLE CONDITION.
--- NOTE | 2018-08-10 07:21 | NUR ---
RECEIVED REPORT FROM NIGHT NURSE. PT IN STABLE CONDITION. SLEEPING AT THIS TIME. RESPIRATIONS EVEN AND UNLABORED. IV INTACT AND PATENT. SAFETY MEASURE IN PLACE. CALL LIGHT AT BEDSIDE. BED IN LOW POSITION. WILL CONTINUE TO MONITOR.
[2018-08-10 07:29] LABS: PLATELET COUNT (AUTO) 528 K/uL (140-450); RED BLOOD CELL COUNT(AUTO) 3.32 MIL/uL (4.20-5.40)
[2018-08-10 07:49] LABS: ANION GAP 11.3 (8-16); CARBON DIOXIDE 26.6 mmol/L (21-32); CHLORIDE 102 mmol/L (98-107); CREATININE 1.1 mg/dL (0.6-1.3); GLUCOSE 92 mg/dL (74-106); POTASSIUM 3.9 mmol/L (3.5-5.1); SODIUM SERUM 136 mmol/L (136-145); UREA NITROGEN, BLOOD 16 mg/dL (7-18)
[2018-08-10 07:53] LABS: MAGNESIUM 1.9 mg/dL (1.8-2.4); PHOSPHORUS 3.5 mg/dL (2.5-4.9)
[2018-08-10 07:55] LABS: HEMATOCRIT 31.7 % (36-48); HEMOGLOBIN 10.3 g/dL (12.0-16.0); MEAN CORPUSCULAR HEMOGLOBIN 31 pg (27-31); MEAN CORPUSCULAR HGB CONC 33 g/dL (33-37); MEAN CORPUSCULAR VOLUME 95.4 fL (80-94); RED CELL DISTRIBUTION WIDTH 15.4 % (11.6-13.7); WHITE BLOOD COUNT (AUTO) 10.8 K/uL (4.8-10.8)
[2018-08-10 08:00] VITALS: BP 186/91
[2018-08-10] MEDS: PANTOPRAZOLE 40 MG INJ VIAL IVP SCH (08:35)
[2018-08-10] MEDS: FUROSEMIDE 20 MG/2 ML VIAL IVP SCH ×2 (08:36→21:00)
[2018-08-10] MEDS: LABETALOL 100 MG/20 ML VIAL IVP PRN (08:41)
[2018-08-10] MEDS: CALCITRIOL 0.25 MCG CAPLF PO SCH (09:00)
[2018-08-10] MEDS: predniSONE 5 MG TAB PO SCH (09:00)
[2018-08-10] MEDS: BACLOFEN 10 MG TAB PO SCH ×3 (09:00→17:00)
[2018-08-10] MEDS: ULORIC 80 MG PO SCH (09:00)
[2018-08-10] MEDS: amLODIPine 5 MG TAB PO SCH (09:00)
[2018-08-10] MEDS: LACTULOSE 20 GM/30 ML UDC PR SCH ×3 (09:00→17:28)
[2018-08-10] MEDS: XELJANZ 11 MG PO SCH (09:00)
[2018-08-10] MEDS: POTASSIUM CHLORIDE 8 MEQ TABER PO SCH (09:00)
[2018-08-10] MEDS: LORATADINE 10 MG TAB PO SCH (09:00)
[2018-08-10] MEDS: METOPROLOL 50 MG TAB PO SCH ×3 (09:00→17:28)
--- NOTE | 2018-08-10 09:00 | NUR ---
PT WOKE UP CONFUSED. PT UNABLE TO SWALLOW WATER AT THIS TIME. UNABLE TO GIVE ORDERED DUE MEDICATIONS AT THIS TIME.
[2018-08-10 09:27] LABS: EOSINOPHILS % (MANUAL) 1 % (0-4); LYMPHOCYTES % (MANUAL) 12 % (20-46); MONOCYTES % (MANUAL) 8 % (5-12)
--- NOTE | 2018-08-10 10:20 | NUR ---
SPOKE WITH RON FROM PHARMACY TO BRING LACTULOSE TO FLOOR FOR ADMINISTRATION. WILL CONTINUE TO MONITOR.
--- NOTE | 2018-08-10 10:25 | NUR ---
PT REFUSING LACTULOSE UDC RECTAL ADMINISTRATION. WILL CONTINUE TO MONITOR.
[2018-08-10] MEDS ORDERED: VANCOMYCIN PER PHARMACY MC PRN (11:35)
--- NOTE | 2018-08-10 11:51 | NUR ---
NIKKI WALTERS RECEIVED ORDER FOR SNF. SILVER JUNE MADE AWARE PH# [phone] AND SHE REQUESTED FOR THE ORDER, SIGNED WOUND VAC FORM, MICROS, H&P, LATEST PROGRESS NOTE AND LIST OF MEDS BE FAXED TO HER AT [phone]. FAXED REQUESTED INFORMATION TO SILVER ATTN: NIKKI JUNE. Addendum: 08/10/18 at 1512 by Dodie Arriaza CM PER SILVER JUNE SHE WILL LOOK FOR AN ACCEPTING SNF
[2018-08-10 12:00] VITALS: BP 149/77
--- NOTE | 2018-08-10 12:30 | NUR ---
BATISTA CATHETER PLACED AT THIS TIME. PT TOLERATED WELL. URINE SAMPLE TAKEN TO LAB. WILL CONTINUE TO MONITOR.
[2018-08-10 12:52] LABS: ALBUMIN 3.1 g/dL (3.4-5.0); BILIRUBIN,DIRECT 0.1 mg/dL (0.0-0.3); TOTAL BILIRUBIN 0.3 mg/dL (0.0-1.0)
[2018-08-10] MEDS: Z-GUARD PASTE TP SCH (13:14)
[2018-08-10 15:31] LABS: APPEARANCE,URINE CLEAR (CLEAR); BILIRUBIN,URINE NEGATIVE (NEGATIVE); BLOOD, URINE NEGATIVE (NEGATIVE); COLOR,URINE YELLOW (YELLOW); LEUKOCYTE ESTERASE ,URINE NEGATIVE (NEGATIVE); NITRITE, URINE NEGATIVE (NEGATIVE); PH,URINE 5.5 (5.0-9.0); UGLUCOSE NEGATIVE (NEGATIVE)
--- NOTE | 2018-08-10 15:40 | NUR ---
Food Service Helper Note: I met with patient and patient's Iker Batista at bedside. Per Iker, patient lives at home with him and he is in agreement with patient being transfer to snf (short term placement) if authorized by insurance. He told me his snf choice is [facility] , I explained to him insurance plan is contracted with certain snfs and insurance plan will notify us which snfs they have a contract with, major case detective Dodie che aware. Addendum: 08/10/18 at 1615 by Martha Barrios SS Per Iker, he would like to apply for SS on patient's behalf. Patient's face sheet currently indicates patient has [employer] SR, no secondary insurance plan. I told him in order to apply for IHSS patient has to have [facility]. He verbalized understanding and stated he is planning to go to [facility] office.
[2018-08-10 15:44] LABS: BARBITURATE, URINE NEG. ng/ml (NEG <=200); BENZODIAZEPINE, URINE NEG. ng/mL (NEG <=200); CANNABINOID, URINE NEG. ng/mL (NEG <=50); COCAINE, URINE NEG. ng/mL (NEG <=300); OPIATE, URINE NEG. ng/mL (NEG <=2000); PHENCYCLIDINE SCREEN,URINE NEG. ng/mL (NEG <=25)
[2018-08-10 16:00] VITALS: BP 130/76
--- NOTE | 2018-08-10 16:48 | NUR ---
SPOKE WITH SHEILA WORKING WITH SUPPLYING WOUND VAC TO PT AT [facility]. SHEILA WILL HOLD WOUND VAC TILL SHE CAN SPEAK WITH PT'S DUE TO CO-PAY. Addendum: 08/10/18 at 1650 by Byrnn Yañez RN SHEILA
[2018-08-10] MEDS: NACL 0.9% 1,000 ML IV SCH (17:33)
[2018-08-10] MEDS ORDERED: ACET-9525 PO (18:21)
[2018-08-10] MEDS ORDERED: HEPA500056 SUBQ (18:21)
[2018-08-10] MEDS ORDERED: LACT10SO11 PO (18:21)
[2018-08-10] MEDS ORDERED: METR500S15 IV (18:27)
[2018-08-10] MEDS ORDERED: VANC1PLA15 IV (18:27)
--- NOTE | 2018-08-10 19:00 | NUR ---
RECRUITMENT OFFICER RECEIVED A PHONE CALL AROUND 1845 HRS THAT PT WILL BE PICKED UP AT 9:30 PM TODAY GOING TO [facility]. RECRUITMENT OFFICER STATED THAT THE CALL WAS CUT OFF AND NEVER CALLED BACK. GABBY MCDANIEL IS NOT AWARE ALSO OF THE CALL. CALLED [facility], SPOKE WITH MURALI-HAILE AND STATED THAT THEY HAVE PREPARED A ROOM FOR PT (113-C) UNDER DR. HERNANDEZ BUT THEY ARE NOT AWARE THAT PT HAS A WOUND AND REQUIRES A WOUND VAC. CALLED [facility] (#[phone]) AND SPOKE WITH CARMEN MAIL RIDER NIKKI, STATED SHE WILL CALL ME BACK IN 20-30 MINUTES TO CHECK WITH [facility] IN PATIENT [employer]STATE [employer] IF THEY WERE THE ONE WHO CALLED [facility] REGARDING PT'S MANAGER SERVICES TIME/TRANSPORTATION. NATALIE [employer] MADE AWARE. ENDORSED TO CODING SUPPORT SPECIALIST CHARGE NURSE.
--- NOTE | 2018-08-10 19:25 | NUR ---
GAVE REPORT TO NIGHT NURSE FOR CONTINUITY OF CARE. PT IN STABLE CONDITION.
--- NOTE | 2018-08-10 19:26 | NUR ---
RECEIVED REPORT FROM DAY SHIFT RN. PT IS A&OX3. RESPIRATIONS ARE EQUAL AND UNLABORED. PT IS ON ROOM AIR. DENIES ANY SOB OR PAIN. PT HAS WOUND VAC ON R FOOT THAT SHOULD BE REMOVED BEFORE TRANSPORT. PT WITH NEW BATISTA CATH INSERTED 08/10/18. PT HAS IV ON LEFT FA 22G INFUSING IVF PER ORDERS. CONTACT ISOLATION FOR MRSA OF WOUND. PLAN OF CARE DISCUSSED. SAFETY MEASURES ARE IN PLACE.
[2018-08-10 20:00] VITALS: BP 166/63
--- NOTE | 2018-08-10 20:30 | NUR ---
CALLED BACK [employer] AND SPOKE TO CARMEN, SHE STATED THAT TRANSPORT WAS ARRANGED FOR [facility]MIER PATTERNATOR AT 2130 GOING TO [facility] ROOM 113B AND WOUND VAC TO BE DELIVERED TO THE FACILITY WITH CO-PAY FROM PT'S , HAILE ZAVALETA MADE AWARE.
--- NOTE | 2018-08-10 21:00 | NUR ---
VITAL SIGNS ARE WITHIN NORMAL LIMITS. DUE MEDICATIONS GIVEN. PT TOLERATED WELL. SAFETY MEASURES ARE IN PLACE. WILL CONTINUE TO MONITOR.
--- NOTE | 2018-08-10 21:29 | NUR ---
CALLED [facility] GAVE REPORT TO MARY LOU MARIE GOING TO ROOM [address] HERNANDEZ. PT WILL CONTINUE TO RECEIVE TREATMENT FOR OSTEOMYELITIS OF R FOOT.
[2018-08-10] MEDS ORDERED: VANCOMYCIN 1GM/DEXT 5% PREMIX 200 ML IV SCH (22:00)
--- NOTE | 2018-08-10 22:10 | NUR ---
PREMIERE CAME TO WELFARE SPECIALIST PATIENT. DISCHARGE PAPERS WERE SIGN.PT LEFT WITH BELONGINGS. IV TO LEFT FA 22 G SALINE LOCK. PT LEFT WITH BATISTA CATH IN PLACE. WOUND VAC WAS REMOVED PER ORDERS. ARM BAND REMOVED. PT LEFT IN STABLE CONDITION. VS ARE STABLE.
== END 2018-08-10 22:10 | DRG 853 ==
LOC: MED 14:39 → MTU 22:22 → UNDOADMIN 22:22 → MTU 23:19
PROVIDERS: ADMIT Internal Medicine Pulmonary Disease; ATTEND Internal Medicine Pulmonary Disease
PROC: 0JBQ0ZZ Excision of Right Foot Subcutaneous Tissue and Fascia, Open Approach (ICD-10-PCS; principal; 2018-08-07)
DX: A41.9 Sepsis, unspecified organism (principal); G92 Toxic encephalopathy; L02.611 Cutaneous abscess of right foot; E44.1 Mild protein-calorie malnutrition; M86.9 Osteomyelitis, unspecified; E72.20 Disorder of urea cycle metabolism, unspecified; L03.115 Cellulitis of right lower limb; G62.9 Polyneuropathy, unspecified; N18.9 Chronic kidney disease, unspecified; E03.9 Hypothyroidism, unspecified; L97.519 Non-pressure chronic ulcer of other part of right foot with unspecified severity; M06.9 Rheumatoid arthritis, unspecified; E05.90 Thyrotoxicosis, unspecified without thyrotoxic crisis or storm; I12.9 Hypertensive chronic kidney disease with stage 1 through stage 4 chronic kidney disease, or unspecified chronic kidney disease; K76.9 Liver disease, unspecified; B95.62 Methicillin resistant Staphylococcus aureus infection as the cause of diseases classified elsewhere; T42.75XA Adverse effect of unspecified antiepileptic and sedative-hypnotic drugs, initial encounter; S90.812A Abrasion, left foot, initial encounter; X58.XXXA Exposure to other specified factors, initial encounter; Y93.89 Activity, other specified; Z68.30 Body mass index [BMI] 30.0-30.9, adult; Z79.899 Other long term (current) drug therapy; Y92.89 Other specified places as the place of occurrence of the external cause; Y99.8 Other external cause status
CPT/HCPCS: 36415; 36600; 70450; 71045; 73630; 76700; 78315; 80048; 80053; 80076; 80202; 80305; 81003; 82009; 82140; 82150; 82803; 82948; 83036; 83605; 83690; 83735; 84100; 84436; 84439; 84443; 84479; 84484; 84550; 85025; 85379; 85610; 85730; 87040; 87070; 87081; 87086; 87186; 92610; 93005; 93926; 93971; 96361; 96365; 96366; 97110; 97530; 99285; C9113; J0360; J0696; J1644; J1940; J2001; J2060; J2543; J3370; J3475; J3480; J3490; J7030; J7060; J7512; Q0092